=== PATIENT | male | born 1940 | race Caucasian/White ===

== ENCOUNTER 2021-03-19 13:20 | Inpatient (IN) | payer MEDICARE, OTHER ==
[~2021-03-19] VITALS: Ht 182.9 cm; Wt 76.2 kg
[2021-03-19] MEDS ORDERED: MELO-107 PO (13:38)
[2021-03-19] MEDS ORDERED: TRIA0.252 PO (13:38)
[2021-03-19] MEDS ORDERED: LUBI24CA5 PO (13:38)
[2021-03-19] MEDS ORDERED: DOXE50CA4 PO (13:38)
[2021-03-19] MEDS ORDERED: MORP15TA PO (13:38)
[2021-03-19] MEDS ORDERED: HYDR-3980 PO (13:38)
[2021-03-19] MEDS ORDERED: ESOM40CA PO (13:38)
[2021-03-19] MEDS ORDERED: AMLO-212 PO (13:38)
[2021-03-19] MEDS ORDERED: MAGNESIUM HYDROXIDE 30 ML LIQUID UDC PO PRN (14:45)
[2021-03-19] MEDS ORDERED: MAG HYDROX/AL HYDROX/SIMETH 30 ML LIQUID UDC PO PRN (14:45)
[2021-03-19] MEDS ORDERED: ACETAMINOPHEN 325 MG TABLET PO PRN (14:45)
[2021-03-19 15:00] VITALS: BP 132/64
[2021-03-19] MEDS ORDERED: BLOOD SUGAR DIAGNOSTIC 1 EACH STRIP VI ONE (15:30)
[2021-03-19] MEDS: LORAZEPAM 0.5 MG TABLET PO PRN (17:56)
[2021-03-19 20:17] VITALS: BP 138/81
[2021-03-19] MEDS: HYDROCODONE/APAP 10-325 MG TABLET PO PRN (23:49)
[2021-03-20] MEDS: HYDROCODONE/APAP 10-325 MG TABLET PO PRN ×2 (05:48→11:58)
[2021-03-20] MEDS: PANTOPRAZOLE SODIUM 40 MG TABLET.DR PO SCH (06:16)
[2021-03-20 07:30] VITALS: BP 118/83
[2021-03-20] MEDS ORDERED: Medication Not On Formulary EA (Esomeprazole Mag Trihydrate (Nexium) 40 MG) PO SCH (09:00)
[2021-03-20] MEDS ORDERED: AMLODIPINE 5 MG TABLET PO SCH (09:00)
[2021-03-20] MEDS ORDERED: Medication Not On Formulary EA (Lubiprostone (Amitiza) 24 MCG) PO SCH (09:00)
[2021-03-20] MEDS: MIRALAX 17 GM POWD.PACK PO SCH (09:04)
[2021-03-20] MEDS ORDERED: MELOXICAM 7.5 MG TABLET PO PRN (12:15)
[2021-03-20] MEDS: MORPHINE SULFATE SR 15 MG TABLET.SA PO SCH ×2 (12:26→17:17)
[2021-03-20 16:00] VITALS: BP 130/77
[2021-03-20 20:00] VITALS: BP 127/75
[2021-03-20] MEDS: MIRTAZAPINE 15 MG TABLET PO SCH (22:31)
[2021-03-20] MEDS: TEMAZEPAM 7.5 MG CAPSULE PO PRN (23:24)
[2021-03-21] MEDS: PANTOPRAZOLE SODIUM 40 MG TABLET.DR PO SCH (06:46)
[2021-03-21] MEDS: HYDROCODONE/APAP 5-325MG TABLET PO PRN ×2 (06:55→16:34)
[2021-03-21] MEDS: MORPHINE SULFATE SR 15 MG TABLET.SA PO SCH ×3 (08:17→16:53)
[2021-03-21] MEDS: MIRALAX 17 GM POWD.PACK PO SCH (08:18)
[2021-03-21 08:23] VITALS: BP 131/74
[2021-03-21] MEDS: MIRTAZAPINE 15 MG TABLET PO SCH (20:00)
[2021-03-21 20:11] VITALS: BP 130/70
[2021-03-22] MEDS: HYDROCODONE/APAP 5-325MG TABLET PO PRN ×2 (05:50→20:19)
[2021-03-22] MEDS: PANTOPRAZOLE SODIUM 40 MG TABLET.DR PO SCH (06:42)
[2021-03-22] MEDS: MIRALAX 17 GM POWD.PACK PO SCH (08:01)
[2021-03-22] MEDS: MORPHINE SULFATE SR 15 MG TABLET.SA PO SCH ×3 (08:02→17:06)
[2021-03-22 08:30] VITALS: BP 136/73
[2021-03-22] MEDS ORDERED: FLEET ENEMA 133 ML BOTTLE RC PRN (12:45)
[2021-03-22] MEDS ORDERED: BISACODYL 5 MG TABLET.DR PO ONE (13:15)
[2021-03-22 15:00] VITALS: BP 105/63
[2021-03-22 20:09] VITALS: BP 131/69
[2021-03-22] MEDS: MIRTAZAPINE 15 MG TABLET PO SCH (20:14)
[2021-03-22] MEDS: LORAZEPAM 0.5 MG TABLET PO PRN (20:14)
[2021-03-22] MEDS: TEMAZEPAM 7.5 MG CAPSULE PO PRN (22:54)
[2021-03-23] MEDS: PANTOPRAZOLE SODIUM 40 MG TABLET.DR PO SCH (06:21)
[2021-03-23] MEDS: HYDROCODONE/APAP 5-325MG TABLET PO PRN ×2 (06:29→23:30)
[2021-03-23 07:30] VITALS: BP 113/66
[2021-03-23] MEDS: MORPHINE SULFATE SR 15 MG TABLET.SA PO SCH ×3 (08:34→17:12)
[2021-03-23] MEDS: MIRALAX 17 GM POWD.PACK PO SCH (08:34)
[2021-03-23 15:17] VITALS: BP 107/71
[2021-03-23 20:21] VITALS: BP 150/72
[2021-03-23] MEDS: MIRTAZAPINE 15 MG TABLET PO SCH (20:43)
[2021-03-23] MEDS: TEMAZEPAM 7.5 MG CAPSULE PO PRN (22:34)
[2021-03-24 06:42] LABS: BASOPHILS % (AUTO) 0.9 % (0.0-2.0); EOSINOPHILS # (AUTO) 0.2 K/uL (0.0-0.7); EOSINOPHILS % (AUTO) 4.2 % (0.0-7.0); HEMATOCRIT 40.5 % (36.7-47.1); HEMOGLOBIN 13.8 g/dL (12.5-16.3); LYMPHOCYTES # (AUTO) 1.8 K/uL (20.0-40.0); LYMPHOCYTES % (AUTO) 38.3 % (20.5-51.5); MEAN CORPUSCULAR HEMOGLOBIN 34.4 uug (23.8-33.4); MEAN CORPUSCULAR HGB CONC 34 g/dL (32.5-36.3); MEAN CORPUSCULAR VOLUME 101.1 fL (73.0-96.2); MONOCYTES # (AUTO) 0.6 K/uL (2.0-10.0); MONOCYTES % (AUTO) 11.6 % (0.0-11.0); NEUTROPHILS # (AUTO) 2.2 K/uL (1.8-8.9); PLATELET COUNT (AUTO) 212 K/uL (152-348); WHITE BLOOD COUNT (AUTO) 4.8 K/uL (3.6-10.2)
[2021-03-24 07:00] LABS: THYROID STIMULATING HORMONE 2.182 mIU/mL (0.358-3.740)
[2021-03-24] MEDS: PANTOPRAZOLE SODIUM 40 MG TABLET.DR PO SCH (07:08)
[2021-03-24 07:19] LABS: BILIRUBIN,TOTAL 0.6 mg/dL (0.2-1.0); CREATININE 1.2 mg/dL (0.6-1.3); MAGNESIUM 2.2 mg/dL (1.8-2.4); PHOSPHOROUS 3.6 mg/dL (2.5-4.9); POTASSIUM 4.9 mmol/L (3.5-5.1); TOTAL PROTEIN, SERUM 6.4 g/dL (6.4-8.2)
[2021-03-24 07:30] VITALS: BP 129/60
[2021-03-24] MEDS: MIRALAX 17 GM POWD.PACK PO SCH (09:29)
[2021-03-24] MEDS: MORPHINE SULFATE SR 15 MG TABLET.SA PO SCH ×3 (09:30→18:01)
[2021-03-24 16:00] VITALS: BP 140/72
[2021-03-24] MEDS: MIRTAZAPINE 15 MG TABLET PO SCH (20:32)
[2021-03-24 20:50] VITALS: BP 134/54
[2021-03-24] MEDS: TEMAZEPAM 7.5 MG CAPSULE PO PRN (22:19)
[2021-03-25] MEDS: PANTOPRAZOLE SODIUM 40 MG TABLET.DR PO SCH (06:43)
[2021-03-25] MEDS: HYDROCODONE/APAP 5-325MG TABLET PO PRN (06:48)
[2021-03-25 07:30] VITALS: BP 148/69
[2021-03-25] MEDS: MORPHINE SULFATE SR 15 MG TABLET.SA PO SCH ×3 (08:41→16:16)
[2021-03-25] MEDS: MIRALAX 17 GM POWD.PACK PO SCH (08:41)
[2021-03-25 16:31] VITALS: BP 125/65
[2021-03-25 20:05] VITALS: BP 132/64
[2021-03-25] MEDS: MIRTAZAPINE 15 MG TABLET PO SCH (20:10)
[2021-03-25] MEDS: TEMAZEPAM 7.5 MG CAPSULE PO PRN (22:43)
[2021-03-26] MEDS: HYDROCODONE/APAP 5-325MG TABLET PO PRN ×3 (05:42→20:16)
[2021-03-26] MEDS: PANTOPRAZOLE SODIUM 40 MG TABLET.DR PO SCH (06:08)
[2021-03-26 07:30] VITALS: BP 153/75
[2021-03-26] MEDS: MIRALAX 17 GM POWD.PACK PO SCH (08:30)
[2021-03-26] MEDS: MORPHINE SULFATE SR 15 MG TABLET.SA PO SCH ×3 (08:31→16:31)
[2021-03-26 16:17] VITALS: BP 127/65
[2021-03-26 20:08] VITALS: BP 142/65
[2021-03-26] MEDS: TEMAZEPAM 7.5 MG CAPSULE PO PRN (20:15)
[2021-03-26] MEDS ORDERED: MIRTAZAPINE 15 MG TABLET PO SCH (21:00)
[2021-03-27] MEDS: PANTOPRAZOLE SODIUM 40 MG TABLET.DR PO SCH (06:18)
[2021-03-27] MEDS: HYDROCODONE/APAP 5-325MG TABLET PO PRN (06:22)
[2021-03-27 08:05] VITALS: BP 142/76
[2021-03-27] MEDS: MORPHINE SULFATE SR 15 MG TABLET.SA PO SCH ×2 (08:33→12:11)
[2021-03-27] MEDS: MIRALAX 17 GM POWD.PACK PO SCH (08:33)
== END 2021-03-27 12:30 | disposition home or self-care (01) | DRG 881 ==
LOC: ER 13:20 → GPS 14:30
PROVIDERS: ADMIT Psychiatry & Neurology Psychiatry; ATTEND Internal Medicine
DX: F32.9 Major depressive disorder, single episode, unspecified (principal); F11.20 Opioid dependence, uncomplicated; G92 Toxic encephalopathy; D68.59 Other primary thrombophilia; T42.6X2D Poisoning by other antiepileptic and sedative-hypnotic drugs, intentional self-harm, subsequent encounter; T40.2X2D Poisoning by other opioids, intentional self-harm, subsequent encounter; Z74.09 Other reduced mobility; H35.30 Unspecified macular degeneration; Z96.659 Presence of unspecified artificial knee joint; K21.9 Gastro-esophageal reflux disease without esophagitis; I10 Essential (primary) hypertension; G89.29 Other chronic pain; M54.40 Lumbago with sciatica, unspecified side; F10.129 Alcohol abuse with intoxication, unspecified; Y90.9 Presence of alcohol in blood, level not specified; M19.90 Unspecified osteoarthritis, unspecified site; M48.9 Spondylopathy, unspecified
CPT/HCPCS: 36415; 83735; 84100; 84443; 85025; A4663